=== PATIENT | male | born 1995 | race Caucasian/White ===

== ENCOUNTER 2019-11-17 16:02 | Emergency (ER) | payer BC ==
[~2019-11-17] VITALS: Ht 172.7 cm; Wt 68.2 kg
[2019-11-17 16:33] VITALS: BP 97/67; TEMP 97.8
[2019-11-17] MEDS ORDERED: DOXYCYCLINE 10100 MG PO (16:56)
[2019-11-17 17:42] VITALS: PULSE 71
== END 2019-11-17 17:44 | disposition home or self-care (01) ==
LOC: COL.ER 16:02
DX: Z20.2 Contact with and (suspected) exposure to infections with a predominantly sexual mode of transmission (principal)
CPT/HCPCS: J0696